=== PATIENT | female | born 1985 | race African-American/Black ===

== ENCOUNTER 2017-09-22 18:33 | Emergency (ER) | payer OTHER ==
[~2017-09-22] VITALS: Ht 165.1 cm; Wt 63.5 kg
[~2017-09-22 18:33] MED LIST: CLARITIN10 MG PO; DARVOCET-N 1001 EACH PO; FLONASE 0.05%50 MCG NASAL; IBUPROFEN 600600 M1 PO; IRON PO; MULTIVITAMIN; NOHOMEMEDICATIONS; NORCO 5-325 TA1 EACH PO; PRENATAL; PRENATAL PO; TESSALON PERLE100 MG PO; ZPAK PO
[2017-09-22] MEDS ORDERED: PREDNISONE 20 M20 MG PO (18:53)
[2017-09-22 19:08] VITALS: BP 126/75
== END 2017-09-22 19:04 | disposition home or self-care (01) ==
LOC: ER 18:33
DX: T63.441A Toxic effect of venom of bees, accidental (unintentional), initial encounter (principal); Y92.89 Other specified places as the place of occurrence of the external cause; Z90.49 Acquired absence of other specified parts of digestive tract; Z98.890 Other specified postprocedural states; Z91.040 Latex allergy status; Z87.891 Personal history of nicotine dependence